=== PATIENT | male | born 1970 | race Caucasian/White ===

== ENCOUNTER 2021-10-04 11:08 | Inpatient (IN) | payer MEDICARE ==
[~2021-10-04] VITALS: Ht 177.8 cm; Wt 172.7 kg
[~2021-10-04 11:08] MED LIST: AMBI5TAB; CYMB1CAP5; IMIT100T; MOTR200T4; NAPR500T; NEUR300C
[2021-10-04] MEDS ORDERED: NAPR-885 PO (11:44)
[2021-10-04] MEDS ORDERED: METO10TA2 PO (11:44)
[2021-10-04] MEDS ORDERED: CIPROFLOXACIN 500MG TABLET PO ONE (13:35)
[2021-10-04] MEDS ORDERED: SENOKOT S TAB PO PRN (14:30)
[2021-10-04] MEDS ORDERED: MOM 30ML SUSPENSION UDC PO PRN (14:30)
[2021-10-04 15:11] LABS: BASO % 0.3 % (0.0-1.0); EOS # 0.1 10^3/uL (0.0-0.5); EOS % 1.2 % (0.0-3.0); HEMATOCRIT 46.8 % (42.0-52.0); HEMOGLOBIN 15.2 g/dl (13.5-17.5); LYMPH # 1.4 10^3/uL (1.5-5.0); LYMPH % 12.1 % (24.0-44.0); MEAN CORPUSCULAR HGB CONC 32.5 g/dl (32.0-36.5); MEAN CORPUSCULAR VOLUME 89.3 fl (80.0-96.0); MONO # 0.8 10^3/uL (0.0-0.8); MONO % 6.8 % (2.0-8.0); NEUTROPHILS # 9.4 10^3/uL (1.5-8.5); NEUTROPHILS % 78.8 % (36.0-66.0); PLATELET COUNT, AUTOMATED 333 10^3/uL (150-450); RED BLOOD COUNT 5.24 10^6/uL (4.30-6.10)
[2021-10-04 15:21] LABS: RSV AMPLIFICATION NEGATIVE (NEGATIVE)
[2021-10-04] MEDS ORDERED: HOME MED LIST COMPLETE! XX SCH (15:25)
[2021-10-04 15:29] LABS: HEMOGLOBIN A1c 5.5 %
[2021-10-04 15:53] LABS: ALBUMIN 3.4 GM/DL (3.2-5.2); ALT/SGPT 49 U/L (12-78); BILIRUBIN,TOTAL 0.5 MG/DL (0.2-1.0); BLOOD UREA NITROGEN 10 MG/DL (7-18); CALCIUM LEVEL 9.1 MG/DL (8.5-10.1); CARBON DIOXIDE LEVEL 33 MEQ/L (21-32); CHLORIDE LEVEL 106 MEQ/L (98-107); CREATININE FOR GFR 0.83 MG/DL (0.70-1.30); FREE THYROXINE INDEX 4.8 % (1.4-3.8); GLOMERULAR FILTRATION RATE > 60.0 (>56); GLUCOSE, FASTING 110 MG/DL (70-100); MAGNESIUM LEVEL 2.1 MG/DL (1.8-2.4); POTASSIUM SERUM 4.1 MEQ/L (3.5-5.1); SODIUM LEVEL 143 MEQ/L (136-145); T UPTAKE 39 % (33-40); THYROXINE (T4) 12.2 UG/DL (4.5-12.0); TOTAL PROTEIN 6.6 GM/DL (6.4-8.2)
[2021-10-04] MEDS ORDERED: LOSARTAN 50MG TABLET PO ONE ×2 (16:20→18:35)
[2021-10-04] MEDS: METOCLOPRAMIDE 10MG TAB PO SCH (16:47)
[2021-10-04] MEDS ORDERED: KETOROLAC 30 MG/ML 1ML VIAL IV PRN (18:35)
[2021-10-04] MEDS ORDERED: **hydrALAZINE** 10 MG TAB PO PRN (18:35)
[2021-10-04] MEDS ORDERED: **hydrALAZINE HCL** 25 MG TAB PO ONE (18:35)
[2021-10-04] MEDS ORDERED: KETOROLAC 30 MG/ML 1ML VIAL IV ONE (18:35)
[2021-10-04] MEDS ORDERED: cloNIDine 0.1MG TABLET PO ONE (18:55)
[2021-10-04] MEDS ORDERED: cloNIDine 0.1MG TABLET PO PRN (18:55)
[2021-10-04 19:00] VITALS: BP 175/84
[2021-10-04 19:44] VITALS: BP 145/85
[2021-10-04] MEDS: CIPROFLOXACIN 500MG TABLET PO SCH (20:25)
[2021-10-04] MEDS: ACETAMINOPHEN TAB 650MG DOSE (2X325MG) PO PRN (20:25)
[2021-10-04] MEDS: DICLOFENAC EPOLAMINE 1.3 % PATCH TOP SCH (20:30)
[2021-10-04] MEDS ORDERED: CIPROFLOXACIN 500MG TABLET PO SCH (21:00)
[2021-10-05] VITALS: BP 140/79
[2021-10-05 05:33] VITALS: BP 143/87
[2021-10-05 07:03] LABS: BLOOD UREA NITROGEN 11 MG/DL (7-18); CALCIUM LEVEL 8.3 MG/DL (8.5-10.1); CARBON DIOXIDE LEVEL 29 MEQ/L (21-32); CHLORIDE LEVEL 106 MEQ/L (98-107); CHOLESTEROL LEVEL 121 MG/DL (<200); CHOLESTEROL RISK RATIO 3.781 (<5); GLOMERULAR FILTRATION RATE > 60.0 (>56); GLUCOSE, FASTING 108 MG/DL (70-100); HDL CHOLESTEROL 32 MG/DL (>40); LDL CHOLESTEROL 66 MG/DL (<100); NON-HDL-C 89 MG/DL; POTASSIUM SERUM 3.5 MEQ/L (3.5-5.1); SODIUM LEVEL 141 MEQ/L (136-145); TRIGLYCERIDES LEVEL 115 MG/DL (<150)
[2021-10-05 07:13] LABS: HEMATOCRIT 41.1 % (42.0-52.0); HEMOGLOBIN 13.3 g/dl (13.5-17.5); MEAN CORPUSCULAR HEMOGLOBIN 29.1 pg (27.0-33.0); MEAN CORPUSCULAR HGB CONC 32.4 g/dl (32.0-36.5); MEAN CORPUSCULAR VOLUME 89.9 fl (80.0-96.0); PLATELET COUNT, AUTOMATED 280 10^3/uL (150-450); RED BLOOD COUNT 4.57 10^6/uL (4.30-6.10); WHITE BLOOD COUNT 8.7 10^3/uL (4.0-10.0)
[2021-10-05] MEDS: METOCLOPRAMIDE 10MG TAB PO SCH ×3 (08:39→18:15)
[2021-10-05] MEDS: DICLOFENAC EPOLAMINE 1.3 % PATCH TOP SCH ×2 (08:39→20:09)
[2021-10-05] MEDS: CIPROFLOXACIN 500MG TABLET PO SCH ×2 (08:40→20:06)
[2021-10-05] MEDS: LOSARTAN 50MG TABLET PO SCH (08:40)
[2021-10-05] MEDS: **hydrALAZINE HCL** 25 MG TAB PO SCH ×3 (08:43→18:16)
[2021-10-05] MEDS: ACETAMINOPHEN TAB 650MG DOSE (2X325MG) PO PRN (08:45)
[2021-10-05 14:00] VITALS: BP 155/89
[2021-10-05 20:27] VITALS: BP 137/74
[2021-10-06] MEDS: **hydrALAZINE HCL** 25 MG TAB PO SCH ×2 (00:22→05:02)
[2021-10-06] MEDS: ACETAMINOPHEN TAB 650MG DOSE (2X325MG) PO PRN (01:44)
[2021-10-06 05:17] VITALS: BP 139/69
[2021-10-06 06:51] LABS: HEMATOCRIT 44.9 % (42.0-52.0); HEMOGLOBIN 14.4 g/dl (13.5-17.5); MEAN CORPUSCULAR HEMOGLOBIN 28.7 pg (27.0-33.0); MEAN CORPUSCULAR HGB CONC 32.1 g/dl (32.0-36.5); MEAN CORPUSCULAR VOLUME 89.4 fl (80.0-96.0); PLATELET COUNT, AUTOMATED 311 10^3/uL (150-450); RED BLOOD COUNT 5.02 10^6/uL (4.30-6.10); WHITE BLOOD COUNT 10.8 10^3/uL (4.0-10.0)
[2021-10-06 07:20] LABS: BLOOD UREA NITROGEN 10 MG/DL (7-18); CALCIUM LEVEL 8.7 MG/DL (8.5-10.1); CARBON DIOXIDE LEVEL 27 MEQ/L (21-32); CHLORIDE LEVEL 108 MEQ/L (98-107); CREATININE FOR GFR 0.71 MG/DL (0.70-1.30); GLOMERULAR FILTRATION RATE > 60.0 (>56); GLUCOSE, FASTING 107 MG/DL (70-100); POTASSIUM SERUM 3.5 MEQ/L (3.5-5.1); SODIUM LEVEL 144 MEQ/L (136-145)
[2021-10-06] MEDS ORDERED: METOCLOPRAMIDE INJ 10MG/2ML VIAL (J2765 PER 1) IV ONE (08:15)
[2021-10-06] MEDS ORDERED: KETOROLAC 30 MG/ML 1ML VIAL IV ONE (08:30)
[2021-10-06] MEDS ORDERED: **hydrALAZINE** 50 MG TAB PO SCH (09:00)
[2021-10-06] MEDS ORDERED: RIZATRIPTAN BENZOATE 10 MG TAB PO ONE (09:00)
[2021-10-06] MEDS: DICLOFENAC EPOLAMINE 1.3 % PATCH TOP SCH ×2 (09:00→20:32)
[2021-10-06] MEDS: CIPROFLOXACIN 500MG TABLET PO SCH ×2 (09:02→20:30)
[2021-10-06] MEDS: LOSARTAN 50MG TABLET PO SCH (09:03)
[2021-10-06] MEDS ORDERED: cloNIDine 0.1MG TABLET PO ONE (09:05)
[2021-10-06 14:00] VITALS: BP 139/83
[2021-10-06] MEDS: **hydrALAZINE** 50 MG TAB PO SCH ×2 (17:09→20:31)
[2021-10-06 20:30] VITALS: BP 152/87
[2021-10-06] MEDS ORDERED: IBUPROFEN 800 MG TAB PO ONE (20:50)
[2021-10-07 05:01] LABS: HEMATOCRIT 43.1 % (42.0-52.0); HEMOGLOBIN 13.6 g/dl (13.5-17.5); MEAN CORPUSCULAR HGB CONC 31.6 g/dl (32.0-36.5); MEAN CORPUSCULAR VOLUME 88.7 fl (80.0-96.0); PLATELET COUNT, AUTOMATED 321 10^3/uL (150-450); RED BLOOD COUNT 4.86 10^6/uL (4.30-6.10)
[2021-10-07 05:22] LABS: BLOOD UREA NITROGEN 11 MG/DL (7-18); CALCIUM LEVEL 8.5 MG/DL (8.5-10.1); CARBON DIOXIDE LEVEL 28 MEQ/L (21-32); CHLORIDE LEVEL 109 MEQ/L (98-107); CREATININE FOR GFR 0.76 MG/DL (0.70-1.30); GLOMERULAR FILTRATION RATE > 60.0 (>56); GLUCOSE, FASTING 110 MG/DL (70-100); POTASSIUM SERUM 3.8 MEQ/L (3.5-5.1); SODIUM LEVEL 142 MEQ/L (136-145)
[2021-10-07 06:39] VITALS: BP 164/101
[2021-10-07 08:51] VITALS: BP 149/83
[2021-10-07 08:53] VITALS: BP 149/83
[2021-10-07] MEDS: CIPROFLOXACIN 500MG TABLET PO SCH (08:53)
[2021-10-07] MEDS: LOSARTAN 50MG TABLET PO SCH (08:54)
[2021-10-07] MEDS: DICLOFENAC EPOLAMINE 1.3 % PATCH TOP SCH ×2 (08:55→09:00)
[2021-10-07] MEDS ORDERED: **hydrALAZINE HCL** 25 MG TAB PO SCH (09:00)
[2021-10-07] MEDS ORDERED: COZA50TA PO (13:06)
[2021-10-07] MEDS ORDERED: CIPR-249 PO (13:06)
[2021-10-07] MEDS ORDERED: AMLO1TAB25 PO (13:06)
[2021-10-07] MEDS ORDERED: HYDR25TA PO (13:08)
== END 2021-10-07 14:25 | disposition home or self-care (01) | DRG 690 ==
LOC: M ED 11:08 → M ED INP 14:21 → M MSPAV 18:49
PROVIDERS: ADMIT General Practice; ATTEND General Practice
DX: N39.0 Urinary tract infection, site not specified (principal); Z68.43 Body mass index [BMI] 50.0-59.9, adult; E66.01 Morbid (severe) obesity due to excess calories; F43.20 Adjustment disorder, unspecified; M54.2 Cervicalgia; I10 Essential (primary) hypertension; J44.9 Chronic obstructive pulmonary disease, unspecified; M17.0 Bilateral primary osteoarthritis of knee; R51.9 Headache, unspecified; B96.20 Unspecified Escherichia coli [E. coli] as the cause of diseases classified elsewhere; G47.33 Obstructive sleep apnea (adult) (pediatric); F41.9 Anxiety disorder, unspecified; F32.A Depression, unspecified; Z88.5 Allergy status to narcotic agent; Z88.8 Allergy status to other drugs, medicaments and biological substances; Z59.00 Homelessness unspecified; Z87.820 Personal history of traumatic brain injury